=== PATIENT | male | born 1940 | race Caucasian/White ===

== ENCOUNTER 2018-09-01 08:10 | Emergency (ER) | payer OTHER ==
[~2018-09-01] VITALS: Ht 182.9 cm; Wt 110.0 kg
[2018-09-01] MEDS ORDERED: SODIUM CHLORIDE 0.9% 1,000ML IVBOLUS ONE (09:00)
[2018-09-01] MEDS ORDERED: SODIUM CHLORIDE FLUSH 10ML SYR IVF ONE (09:00)
[2018-09-01] MEDS ORDERED: BACITRACIN ZINC OINT 500U/GM, 0.9 GM ONE (09:20)
[2018-09-01 09:23] LABS: BASOPHILS # (AUTO) 0.05 x10^3/uL (0-0.1); BASOPHILS % (AUTO) 1 % (0-1); EOSINOPHILS # (AUTO) 0.07 x10^3/uL (0-0.4); EOSINOPHILS % (AUTO) 1 % (1-7); LYMPHOCYTES # (AUTO) 0.88 x10^3/uL (1-3.4); LYMPHOCYTES % (AUTO) 9 % (22-44); MD NO; MEAN CORPUSCULAR HEMOGLOBIN 28.7 pg (27.5-34.5); MEAN CORPUSCULAR VOLUME 87.1 fL (81-97); MEAN PLATELET VOLUME 8.6 fL (7.4-10.4); MONOCYTES # (AUTO) 0.67 x10^3/uL (0.2-0.8); MONOCYTES % (AUTO) 7 % (2-9); NEUTROPHILS # (AUTO) 8.63 x10^3/uL (1.8-6.8); NEUTROPHILS % (AUTO) 84 % (42-75); PLATELET COUNT 252 x10^3/uL (130-400); RED BLOOD COUNT 4.83 x10^6/uL (4.38-5.82); RED CELL DISTRIBUTION WIDTH 13.6 % (9.4-14.8)
[2018-09-01 09:34] LABS: ALANINE AMINOTRANSFERASE 21 U/L (12-78); ALBUMIN 3.8 g/dL (3.4-5.0); ANION GAP 3 mmol/L (5-15); CALCIUM 8.4 mg/dL (8.5-10.1); CHLORIDE 111 mmol/L (98-107); CREATININE 1.17 mg/dL (0.7-1.3)
[2018-09-01 09:36] LABS: ALKALINE PHOSPHATASE 88 U/L (45-117); BILIRUBIN,TOTAL 1.2 mg/dL (0.2-1.0); TOTAL PROTEIN 7.6 g/dL (6.4-8.2)
[2018-09-01] MEDS ORDERED: OMNIPAQUE 350 MG/ML, 100ML BOTTLE ONE (10:13)
[2018-09-01 10:49] LABS: INTERNATIONAL NORMALIZED RATIO 2.99 (0.93-1.1)
[2018-09-01] MEDS ORDERED: WARF5TAB PO (10:50)
[2018-09-01] MEDS ORDERED: ATOR40TA78 PO ×2 (10:51→11:22)
[2018-09-01] MEDS ORDERED: AMIO200T42 PO ×2 (10:59→11:21)
[2018-09-01] MEDS ORDERED: CARV3.122 PO (11:00)
[2018-09-01] MEDS ORDERED: AMIO100T4 PO (11:00)
[2018-09-01] MEDS ORDERED: CARV6.2512 PO (11:23)
[2018-09-01 11:29] LABS: PROTHROMBIN TIME 30.1 Seconds (9.6-11.5)
[2018-09-01 11:48] LABS: MICROSCOPIC INDICATED
[2018-09-01] MEDS ORDERED: MORPHINE SULFATE 4 MG/ML, 1ML ONE (11:57)
[2018-09-01] MEDS ORDERED: ONDANSETRON 2MG/ML, 2ML ONE (11:57)
[2018-09-01 12:00] LABS: CULTURE INDICATED? NO
[2018-09-01] MEDS ORDERED: ONDANSETRON 2MG/ML, 2ML IVPush ONE (12:00)
[2018-09-01] MEDS ORDERED: MORPHINE SULFATE 4 MG/ML, 1ML IVPush PRN (12:00)
[2018-09-01 13:09] VITALS: BP 167/82
== END 2018-09-01 13:34 | disposition short-term general hospital (02) ==
LOC: ED 09:48
DX: S22.41XA Multiple fractures of ribs, right side, initial encounter for closed fracture (principal); S80.212A Abrasion, left knee, initial encounter; S50.312A Abrasion of left elbow, initial encounter; W01.0XXA Fall on same level from slipping, tripping and stumbling without subsequent striking against object, initial encounter; Y93.89 Activity, other specified; Y92.59 Other trade areas as the place of occurrence of the external cause; Y99.8 Other external cause status; S60.512A Abrasion of left hand, initial encounter
CPT/HCPCS: 36415; 71260; 74177; 80053; 81001; 83605; 85025; 85610; 93005; 96374; 96375; 99291; J2405; J7030; Q9967